=== PATIENT | female | born 1935 | race Caucasian/White ===

== ENCOUNTER → 2016-12-02 | Outpatient (CLI) | payer OTHER, MEDICARE | LOC: BMCIMAGING 09:31 | PROVIDERS: ATTEND Internal Medicine | DX: K80.20 Calculus of gallbladder without cholecystitis without obstruction (principal) ==

== ENCOUNTER 2016-12-28 14:58 | Emergency (ER) | payer OTHER, MEDICARE ==
[2016-12-28] MEDS ORDERED: IBUPROFEN 600 MG TAB PO ONE (15:32)
[2016-12-28] MEDS ORDERED: ACETAMINOPHEN 500 MG TAB ONE (15:40)
[2016-12-28] MEDS ORDERED: ACETAMINOPHEN 500 MG TAB PO ONE (15:42)
--- NOTE | 2016-12-28 15:48 | EDPHY ---
H & P Time Seen by Provider: 12/28/16 15:48 HPI/ROS: CHIEF COMPLAINT: Head injury HISTORY OF PRESENT ILLNESS: Patient was at home a an cleaning high shelves in her house when she missed a step coming back off a step ladder and fell hitting her head at 2:00 p.m.. Her arrived 2 minutes later and found her mouth moving but nonverbal and she was altered and confused for a total of 10 minutes after her injury. Now she is mentally back to normal but complains of a right- sided headache. Not associated with visual changes or vomiting or neck pain. Symptoms mild now. REVIEW OF SYSTEMS: Eye: no change in vision ENT: no sore throat Cardiac: no chest pain or syncope Pulmonary: no cough or SOB Abdomen: no vomiting, diarrhea, abdominal pain Musculoskeletal: No back or neck pain, has some pain in her right hand and in her left groin. Skin: no rash Neuro: no headache Constitutional: no fever : no urinary symptoms A comprehensive 10 point review of systems is otherwise negative aside from elements mentioned in the history of present illness. PAST MEDICAL HISTORY: Rotator cuff repair, hypertension, knee arthroscopy, ear surgery, high cholesterol, hypothyroid, depression. Recent right shoulder surgery by Cecy Bullock. Social history: [facility] care [facility], nonsmoker, no alcohol. General Appearance: Alert and conversant, cooperative. Eyes: No scleral icterus. ENT, Mouth: Normal mucous membranes. No hemotympanum, right occipital scalp hematoma. Respiratory: Normal respiratory effort, breath sounds equal, lungs are clear to auscultation. Cardiovascular: Regular rate and rhythm. Gastrointestinal: Abdomen is soft and non tender. Neurological: Alert and oriented x3. Normally conversant. Face symmetric, normal movement and sensation in all extremities. Patient is ambulatory without an antalgic gait, no ataxia, without assistance. Skin: Warm and dry, no rashes. Musculoskeletal: Right hand tenderness at the base of the thumb but no snuffbox tenderness and normal range of motion of all fingers. Normal capillary refill. Normal motor and sensory. Does not have left hip pain on axial loading or rotation of the left hip and pelvis is stable. no cervical thoracic or lumbar spine midline pain to palpation. Psychiatric: Not agitated. Emergency Department course/MDM: Likely concussion versus intracranial bleed, and right hand and left hip contusion. Plan for head CT and x-ray of the right hand and left hip, discharge if negative. I walked the patient over to the PACs monitor to review her CT with her. 1750: Patient seen in person by Dr. Tavarez in the emergency department, who recommends the patient be discharged with outpatient clinical monitoring by her . Trading Manager neurosurgeons plan discussed with the patient and family who are in agreement. Smoking Status: Never smoked Constitutional: Initial Vital Signs Temperature (C) 36.3 C 12/28/16 15:24 Heart Rate 82 12/28/16 15:24 Respiratory Rate 18 12/28/16 15:24 Blood Pressure 158/78 H 12/28/16 15:24 O2 Sat (%) 93 12/28/16 15:24 O2 Delivery Mode Room Air Allergies/Adverse Reactions: bacitracin [From Neosporin ([id number])] Allergy (Verified 12/28/16 15:29) bacitracin zinc [From Neosporin ([id number])] Allergy (Verified 12/28/16 15: 29) latex Allergy (Verified 12/28/16 15:29) neomycin sulfate [From Neosporin ([id number])] Allergy (Verified 12/28/16 15: 29) polymyxin B [From Neosporin ([id number])] Allergy (Verified 12/28/16 15:29) promethazine HCl [From Phenergan] Allergy (Verified 12/28/16 15:29) sulfamethoxazole [From Bactrim] Allergy (Verified 12/28/16 15:29) trimethoprim [From Bactrim] Allergy (Verified 12/28/16 15:29) Home Medications: Medication Instructions Recorded Cymbalta 03/16/14 Hydrocodone/APAP 5/325 [[place] 1 each PO Q4-6PRN PRN #14 tab 03/16/14 5/325 (*)] Norvasc 03/16/14 Simvastatin 03/16/14 Synthroid 03/16/14 Pristiq 12/28/16 Seroquel 12/28/16 Medical Decision Making - Diagnostics Imaging: Imaging Impressions Hand X-Ray 12/28/16 16:00 Impression: 1. No acute osseous abnormality seen right hand. 2. Degenerative changes first carpometacarpal joint and trapezium navicular joint. Head CT 12/28/16 16:00 Impression: 1. Acute petechial hemorrhages along the right parietal cortex and sylvian fissure consistent with cortical hemorrhages and subarachnoid hemorrhages, without mass effect or herniation. 2. Right parietal scalp hematoma, without skull fracture. 3. No epidural or subdural hematoma. 4. No midline shift, mass effect, or herniation. 5. Moderate microvascular ischemic gliosis. Findings and recommendations discussed with Emergency Department physician, Bang Singh M.D., at 1721 hours, on December 28, 2016. Final report concurs with initial preliminary interpretation. Cosign: Rufino Urena M.D. Hip X-Ray 12/28/16 16:00 Impression: Negative for fracture with other findings as detailed above. X-ray left hip and right hand personally interpreted by myself shows no acute fracture dislocation or other injury. Old fracture on the proximal portion of the distal phalanx of the thumb. Differential Diagnosis: Differential diagnosis considered for head injury including but not limited to concussion, skull fracture, intraparenchymal contusion, subarachnoid, subdural and epidural hematoma. Consult/Admit Bed Type: Jarret Tavarez 4292 - Data Points Medications Given: Discontinued Medications Acetaminophen (Tylenol) 1,000 mg PO EDNOW ONE Stop: 12/28/16 15:43 Last Admin: 12/28/16 15:47 Dose: 1,000 mg Ibuprofen (Motrin) 600 mg PO EDNOW ONE Stop: 12/28/16 15:33 Last Admin: 12/28/16 15:42 Dose: Not Given Departure - Departure Disposition: Home, Routine, Self-Care Clinical Impression: Concussion Qualifiers: Encounter type: initial encounter Loss of consciousness presence/duration: without LOC Qualified Code(s): S06.0X0A - Concussion without loss of consciousness, initial encounter Contusion of hand, right Qualifiers: Encounter type: initial encounter Qualified Code(s): S60.221A - Contusion of right hand, initial encounter Traumatic subarachnoid hemorrhage Qualifiers: Encounter type: initial encounter Loss of consciousness presence/duration: without LOC Qualified Code(s): S06.6X0A - Traumatic subarachnoid hemorrhage without loss of consciousness, initial encounter Condition: Good Instructions: Concussion (ED), Contusion in Adults (ED) Referrals: Dana Lunsford MD [Primary Care Provider] - As per Instructions Francisca Tavarez MD [Medical Doctor] - As per Instructions
[2016-12-28 18:23] VITALS: BP 165/68; PULSE 84; RESP 20; TEMP 98.2; O2SAT 92
--- NOTE | 2016-12-28 21:36 | GCON ---
[f rep st] CONSULTATION NEUROSURGICAL CONSULTATION DATE OF CONSULTATION: 12/28/2016 REASON FOR CONSULTATION: Mild closed head injury, with traumatic subarachnoid hemorrhage. HISTORY OF PRESENT ILLNESS: The patient was at home cleaning some high shelves in her house when eriberto coronado missed a step coming off a two-step ladder, when she thought it was a one-step ladder, and she fel l to the right hitting the right side of her head around 2 p.m. Her found her about 10 ana hali later. Mouth was moving, but she is nonverbal, and she was confused for a total of about 10 min utes. She is back to normal completely at the [facility], and was se en by the ER physician, and CT head was done demonstrating a traumatic subarachnoid hemorrhage, and Neurosurgery was consulted. PAST MEDICAL HISTORY: Significant for hypertension, knee surgery, ear surgery, high cholesterol, hy pothyroidism, depression. She had a right shoulder surgery by Cecy Bullock MD. She has a rotat or cuff repair. PRIMARY CARE DOCTOR: Dr. Dana Lunsford. SOCIAL HISTORY: She does not smoke or drink alcohol. PHYSICAL EXAMINATION: Her eyes are open. She follows commands bilaterally. She has a right subgal eal hematoma on the right side of the head over the parietal region. There is no palpable skull fra cture. Her eyes are open. She follows commands bilaterally. Verbal. She is alert and oriented x3 , and she is fully conversant making jokes, and we had a long conversation with her and her . LABORATORY DATA: CT scan of the head demonstrated a small amount of right sylvian traumatic subarac hnoid hemorrhage at the frontotemporal junction in the posterior right sylvian fissure. There is no evidence of midline shift, mass effect or hydrocephalus. ASSESSMENT: The patient is an 81-year-old with a mild closed head injury, who has a [place] [employer] joey of 15, and has evidence of traumatic subarachnoid hemorrhage on her CT scan. I offered her admi ssion in the hospital, and I explained to her this is our common practice for this type of injury. She was evaluated in the emergency department by Neurosurgery, and I felt she has a very attentive h usband, and could go home to his care. I encouraged him to wake her up in the middle of the night t onight to make sure that she continues to do well, and if she was fine tomorrow, the likelihood of a ny problem was quite low. If she develops any change or unusual behavior, he would activate EMS and bring her straight back to the emergency room. He understands, though, that there is no point in c alling us in the event of these issues, but she is supposed to come immediately back to the Emergenc y Room here at [facility]. I explained to them the likelihood of deterioration, inc luding the slight likelihood of with this approach, and that hospitalization minimizes these p robabilities, but they were already so small, that it was reasonable for him, in the context of her excellent clinical status, to simply keep an eye on her at home, and that is the route that they cho se to pursue. /[id number]/MODL
== END 2016-12-28 18:21 | disposition home or self-care (01) ==
DX: S06.0X0A Concussion without loss of consciousness, initial encounter (principal); S06.6X0A Traumatic subarachnoid hemorrhage without loss of consciousness, initial encounter; S60.221A Contusion of right hand, initial encounter; I10 Essential (primary) hypertension; Z91.040 Latex allergy status; W11.XXXA Fall on and from ladder, initial encounter; Y92.009 Unspecified place in unspecified non-institutional (private) residence as the place of occurrence of the external cause; Y99.8 Other external cause status; Y93.E5 Activity, floor mopping and cleaning

== ENCOUNTER → 2017-03-17 | Outpatient (CLI) | payer OTHER, MEDICARE ==
[~2017-03-17] MED LIST: GADOBUTROL 10 ML VIAL IVP ONE
== END ==
LOC: FIMAGING 07:19
PROVIDERS: ATTEND Psychiatry & Neurology Neurology
DX: R42 Dizziness and giddiness (principal); I10 Essential (primary) hypertension; H81.09 Meniere's disease, unspecified ear
CPT/HCPCS: 70553; A9585

== ENCOUNTER → 2018-07-12 | Outpatient (CLI) | payer OTHER, MEDICARE | LOC: FIMAGING 08:04 | PROVIDERS: ATTEND Internal Medicine | DX: Z12.31 Encounter for screening mammogram for malignant neoplasm of breast (principal) ==